=== PATIENT | male | born 1990 | race Caucasian/White ===

== ENCOUNTER 2019-05-20 09:33 | Emergency (ER) | payer OTHER ==
[~2019-05-20] VITALS: Ht 170 cm; Wt 81.7 kg
[2019-05-20 10:34] LABS: ABSOLUTE MONOCYTES 0.7 thou/uL (0.0-1.2); ABSOLUTE NEUTROPHILS 4.2 thou/uL (1.6-8.1); BASOPHILS 0.5 %; EOSINOPHILS 0.5 %; HEMATOCRIT 43.3 % (42.0-52.0); LYMPHOCYTES 29.2 %; MCHC 34.7 g/dL (28.0-37.0); MCV 89.4 fL (80.0-100.0); MONOCYTES 9.4 %; MPV 7.3 fl. (7.2-11.1); NUCLEATED RBCS 0 /100WBC; PLATELET COUNT* 267 thou/uL (150-400); POLYS 60.4 %; RBC 4.85 mil/uL (4.50-6.00); RDW-CV 12.5 % (10.5-14.5)
[2019-05-20 10:48] LABS: CALCIUM 9.2 mg/dL (8.5-10.1); POTASSIUM 3.7 mmol/L (3.5-5.1)
[2019-05-20 10:53] LABS: ALBUMIN 4.1 g/dL (3.4-5.0); TOTAL BILIRUBIN 0.3 mg/dL (<0.1-1.0)
[2019-05-20] MEDS ORDERED: FLEXERIL PO (11:30)
[2019-05-20 11:44] VITALS: BP 145/86
== END 2019-05-20 11:44 | disposition home or self-care (01) ==
LOC: M.ERS 09:33
PROVIDERS: Emergency Medicine Emergency Medical Services
DX: S06.0X0A Concussion without loss of consciousness, initial encounter (principal); R07.89 Other chest pain; V89.2XXA Person injured in unspecified motor-vehicle accident, traffic, initial encounter; Y93.89 Activity, other specified; Y92.89 Other specified places as the place of occurrence of the external cause; Y99.8 Other external cause status